=== PATIENT | female | born 1990 | race Caucasian/White ===

== ENCOUNTER → 2017-04-16 | Outpatient (REF) | LOC: WSOH 14:12 | DX: Z02.89 Encounter for other administrative examinations (principal) ==

== ENCOUNTER 2017-09-25 02:00 | Emergency (ER) | payer BC ==
[~2017-09-25] VITALS: Ht 160 cm; Wt 56.8 kg
[2017-09-25 02:02] VITALS: TEMP 98.2
[2017-09-25] MEDS ORDERED: MAXALT5 MG PO (02:06)
[2017-09-25] MEDS ORDERED: ZOFRAN ODT4 MG PO (04:32)
[2017-09-25 05:01] VITALS: BP 107/70; PULSE 90
== END 2017-09-25 04:30 | disposition home or self-care (01) ==
LOC: COL.ER 02:00
DX: J10.1 Influenza due to other identified influenza virus with other respiratory manifestations (principal); G43.909 Migraine, unspecified, not intractable, without status migrainosus; F17.210 Nicotine dependence, cigarettes, uncomplicated
CPT/HCPCS: J1200; J1885; J2550; J2765; J7030

== ENCOUNTER 2020-07-28 18:15 | Emergency (ER) | payer BC ==
[~2020-07-28] VITALS: Ht 157.5 cm; Wt 59.1 kg
[~2020-07-28 18:15] MED LIST: MAXALT5 MG PO; ZOFRAN ODT4 MG PO
[2020-07-28 18:52] VITALS: TEMP 98.4
[2020-07-28 19:59] VITALS: BP 126/70; PULSE 78
== END 2020-07-28 20:00 | disposition home or self-care (01) ==
LOC: COL.ER 18:15
DX: G43.909 Migraine, unspecified, not intractable, without status migrainosus (principal)
CPT/HCPCS: J1200; J1885; J2550